=== PATIENT | male | born 1950 | race Caucasian/White ===

== ENCOUNTER 2016-06-24 14:33 | Inpatient (IN) ==
[2016-06-24] MEDS ORDERED: VANCOMYCIN PER PHARMACY IV ONE ×3 (17:57→18:11)
[2016-06-24] MEDS ORDERED: NALOXONE HCL 0.4 MG/ML VIAL IV PRN (18:11)
[2016-06-24] MEDS ORDERED: VANCOMYCIN 1,000 MG in 0.9 % SODIUM CHLORIDE 250 ML IV ONE (18:11)
[2016-06-24] MEDS ORDERED: ONDANSETRON 4 MG/2 ML VIAL IV PRN (18:11)
[2016-06-24] MEDS ORDERED: ACETAMINOPHEN 325 MG TABLET PO PRN (18:11)
[2016-06-24] MEDS ORDERED: PROMETHAZINE 25 MG/ML VIAL IV PRN (18:11)
[2016-06-24] MEDS ORDERED: CALCIUM CARBONATE 500 MG TAB.CHEW CHEWED SCH (18:15)
--- NOTE | 2016-06-24 18:21 | Internal Med History&Physical ---
Medical - H&P: HPI Patient information: Note initiated : 06/24/16 at 6:13 pm Service Date, if different from initiated Date: [] Patient: Patrice Toscano 65 y/o M admitted on 06/24/16 for PNA,ESRD. Chief Complaint: [] History of present illness: Mr. Toscano is a 65 year old male with h/o esrd on HD, presented to the ER from HD unit in [place] for increased confusion. The patient on my evaluation was drowsy, and responsive only to deep touch, on review of the documentation by the ER physician in [place], it seems he had received 0.5mg atvian prior to arrival here at this facility. The Er note mentions that the patient has been having increased confusion and hallucinations x 1 week, worse today, during HD he was confused and had visual hallucinations therefore transported to the ER. He did not endorse any specific complaints to the ER< they did an X ray chest which they noted for right lower lobe pneumonia, however the official x ray read is for left pleural effusion, which is chronic and new right lower lobe effusion. The patient has h/o bladder cancer s/p resection and a urostomy in place. The urostomy is draining pus/ yellowish brown liquid. The ER note mentions that this is a chr issue. As per the nurse the patient has h/o chronic oxygen dependence and is on 4L oxygen at baseline. Labs done by the ER there shows leucopenia, wbc of 3.4, Na 137, K 3.7, Hco3 30, Procalcitonin 0.59, trop 0.03, lft ok, alb 2.1 [facility] did not have any lozenge maker helper available, and the patient declined transfer to [facility], the patient was therefore presented to Dr Zepeda who was the accepting physician for admission. I have taken over the service and Dr Zepeda did not see or evaluate the patient. ROS unobtainable: due to mental status Medical - H&P: PMH Medical history: Anemia of renal disease CAD HTN obtained by ER notes. Surgical history: Baldder cancer s/p resection urostomy Obtained by er note Pertinent family history: unable to review, pt non verbal. Social history: smoker, no etoh no drugs Obtained via ER notes. Medical - H&P: Meds Allergies Allergy/AdvReac Type Severity Reaction Status Date / Time No Known Drug Allergies Allergy Unverified 06/24/16 18:13 Medical - H&P: Exam - Constitutional Vitals: Temp Pulse Resp BP Pulse Ox 98.1 F 77 24 103/65 97 06/24/16 16:49 06/24/16 16:49 06/24/16 16:49 06/24/16 16:49 06/24/16 16:49 General appearance: no acute distress - Head Head exam: Present: atraumatic, normal inspection - Eye Eye exam: Present: PERRL. Absent: periorbital swelling, scleral icterus Additional comments: left subconjunctiave hemmorrhage. - ENT ENT exam: Present: mucous membranes dry, normal external ear exam - Neck Neck exam: Present: normal inspection Additional comments: Right IJ Central access. - Respiratory Respiratory exam: Absent: accessory muscle use, stridor, wheezes - Cardiovascular Cardiovascular exam: Present: normal rate and rhythm, +S1, +S2, systolic murmur - GI/Abdominal GI/Abdominal exam: Present: normal bowel sounds, soft. Absent: guarding, tenderness Additional comments: Right lower quadrant, Urostomy bag in place, approx 100cc brownish / yellowish liquid in bag - Extremities Exam Extremities exam: Absent: pedal edema Additional comments: dry skin, scaly heels long nails - Neurological Exam Additional comments: aoox0 drowsy, awakes to deep stimuli and can follow orders once awake, goes back to sleep soon. moving all extremities, - Psychiatric Additional comments: drowsy unable to examine. - Skin Skin exam: Present: dry. Absent: rash, urticaria Medical - H&P: Reslt - Labs Labs: reviewed see HPI for labs, radiology Medical - H&P: A/P (1) Pleural effusion, left Current visit: Yes Status: Acute (2) Pleural effusion, right Current visit: Yes Status: Acute (3) Hospital-acquired pneumonia Current visit: Yes Status: Acute (4) Urinary tract infection Current visit: Yes Status: Acute (5) Sepsis Current visit: Yes Status: Acute (6) Chronic respiratory failure Current visit: Yes Status: Acute (7) ESRD (end stage renal disease) Current visit: Yes Status: Acute - Narrative A/P Narrative: Patient is drowsy, therefore complete history not possible, CT head done by ER is negative, Based on the labs/ ER notes it seems that the patient has AMS, Hallucinations and the etiology is likely PNA/ vs UTI PNA_ Blood cultures, IV vancomycin and zosyn for now, Pleural effusion_ Rodrigo effusion,s left is chronic, however right is new, Get CT chest without contrast to look for e/o empyema. UTI/ pyuria- On IV antibiotics, according to notes this is a chr issue? will get USG renal for further evaluation, consider CT abdomen and pelvis. Get urine culture after changing bag. AMS/ Hallucinations- due to infection treat and monitor ESRD- Nephrology consult, the patient had 2 hrs HD today, electrolytes seems stable, not clinically in fluid overload no urgent need for dialysis. DVT - HEp sq Diet- renal Prognosis- Guarded.
[2016-06-24] MEDS: IPRATROPIUM/ALBUTEROL 3 ML AMPUL.NEB NEB SCH (18:57)
[2016-06-24] MEDS ORDERED: IPRATROPIUM/ALBUTEROL 3 ML AMPUL.NEB NEB ONE (18:59)
[2016-06-24] MEDS ORDERED: PIPERACILLIN SODIUM/TAZOBACTAM 2.25 GM VIAL IV ONE (20:02)
[2016-06-24] MEDS: HEPARIN 5,000 UNIT/ML VIAL SQ SCH (20:05)
[2016-06-24] MEDS: PIPERACILLIN SODIUM/TAZOBACTAM 2.25 GM in DEXTROSE 5% IN WATER 50 ML IV SCH (20:05)
[2016-06-24] MEDS: 0.9 % SODIUM CHLORIDE 10 ML SYRINGE IV SCH ×2 (20:06→22:36)
--- NOTE | 2016-06-24 20:18 | Cat Scan Report ---
CLINICAL INFORMATION: Pleural effusion. Unresponsive. COMPARISON: None TECHNIQUE: Axial noncontrast enhanced images through the chest. Sagittally and coronally reformatted images. MIP reformatted images. FINDINGS: Large bilateral pleural effusions. These appear to be free flowing pleural effusions. Bilateral lower lobe volume loss with air bronchograms. Upper lobes are negative. No parenchymal consolidation or focal mass. Extensive coronary artery calcification. No pericardial fluid. No hilar or mediastinal lymphadenopathy. No pathologic axillary adenopathy. Thoracic spine is negative. Ribs and sternum are negative. IMPRESSION: 1. Large bilateral pleural effusions. 2. Bilateral lower lobe volume loss. Pneumonia is possible. Interpreted and Authenticated by: Zach Wilson 06/24/16
--- NOTE | 2016-06-24 20:30 | Ultrasound Report ---
CLINICAL INFORMATION: Altered mental status. Not responsive. TECHNIQUE: Grayscale and color flow spectral imaging COMPARISON: None. FINDINGS: Difficult examination. The patient was unable to cooperate and move for optimal imaging. Abnormal gallbladder. Dense acoustic shadow consistent with cholelithiasis. Kidneys are markedly abnormal. Left kidney measures 14.9 x 6.7 x 5.7 cm. Right kidney measures 12.2 x 5.2 x 4.9 cm. No normal sinus or cortical parenchyma. There are multiple hypoechoic abnormalities throughout both kidneys. These may be prominent pyramids or cysts. Appearance is not typical of bilateral hydronephrosis. The hypoechoic abnormalities are not sonolucent, infection is not excluded. No shadowing abnormalities. No detectable calculi. CT scan maybe helpful for better anatomic evaluation. Bladder is not identified. IMPRESSION: 1. Markedly abnormal kidneys. No typical hydronephrosis. 2. Multiple hypoechoic but not sonolucent abnormalities. CT scan maybe helpful for further evaluation. Interpreted and Authenticated by: Zach Wilson 06/24/16
[2016-06-24] MEDS ORDERED: VANCOMYCIN 500 MG VIAL ONE (21:24)
[2016-06-25] MEDS: IPRATROPIUM/ALBUTEROL 3 ML AMPUL.NEB NEB SCH ×4 (02:34→19:10)
[2016-06-25] MEDS: PIPERACILLIN SODIUM/TAZOBACTAM 2.25 GM in DEXTROSE 5% IN WATER 50 ML IV SCH ×3 (05:26→23:28)
[2016-06-25] MEDS: 0.9 % SODIUM CHLORIDE 10 ML SYRINGE IV SCH ×3 (05:27→23:36)
[2016-06-25] MEDS ORDERED: PIPERACILLIN SODIUM/TAZOBACTAM 2.25 GM VIAL IV ONE (05:33)
[2016-06-25 06:17] LABS: ALT/SGPT < 5 U/l (0-40); Albumin 2.3 gm/dL (3.2-5.2); Albumin/Globulin Ratio 0.6 (1.0-2.3); Alkaline Phosphatase 90 U/L (39-117); Bilirubin,Direct < 0.2 mg/dL (0.0-0.3); Blood Urea Nitrogen 21 mg/dl (8-23); Gamma Glutamyl Transpeptidase 9 U/L (8-61); Magnesium 1.9 mg/dL (1.6-2.5); Phosphorous 6.6 mg/dL (2.7-4.5); Uric Acid 4.3 mg/dL (2.5-8.0)
[2016-06-25 06:18] LABS: Mean Cell Volume 85.4 fL (80.0-100.0); Mean Corpuscular HGB Conc 30.1 g/dL (31.0-36.0); Mean Corpuscular Hemoglobin 25.8 pg (26.0-34.0); Platelet Count 129 K/mcL (140-440); RBC 4.18 M/mcL (4.50-5.90); Red Cell Distribution Width 18.3 % (11.5-14.5)
[2016-06-25] MEDS: PANTOPRAZOLE 40 MG VIAL IV SCH (07:57)
[2016-06-25 08:52] LABS: Anisocytosis 1+ (NONE SEEN); Band Neutrophils % 12 % (0-10); Basophils % (Manual) 3 % (0-2); Eosinophils % (Manual) 1 % (0-7); Hypochromasia 1+ (NONE SEEN); Lymphocytes % 11 % (15-49); Monocytes % (Manual) 6 % (1-9); Platelet Estimate DECREASED (NORMAL); RBC Morphology ABNORM (NORMAL); Segmented Neutrophils % 67 % (38-78)
[2016-06-25] MEDS: MULTIVIT,THER IRON,CA,FA & MIN 1 TABLET PO SCH (09:11)
[2016-06-25] MEDS: HEPARIN 5,000 UNIT/ML VIAL SQ SCH ×2 (09:11→23:27)
[2016-06-25] MEDS: SEVELAMER 800 MG TABLET PO SCH ×3 (09:11→17:15)
[2016-06-25] MEDS: CINACALCET 30 MG TABLET PO SCH (09:11)
[2016-06-25] MEDS: CLOPIDOGREL 75 MG TABLET PO SCH (09:11)
[2016-06-25] MEDS: oxyCODONE/APAP 5/325MG TABLET PO PRN ×2 (09:15→14:00)
--- NOTE | 2016-06-25 09:58 | Internal Med Progress Note ---
Medical - PN: Subj Patient information: Note initiated : 06/25/16 at 9:56 am Service Date, if different from initiated Date: [] Patient: Patrice Toscano 65 y/o M admitted on 06/24/16 for PNA,ESRD. Chief Complaint: [] Interval history: The patient seen examined, this AM overnight events noted, no acute issues the patient mental status is much better this AM, able to answer questions, knows he is in the [facility], but not the hospital, aware of the year, He notes he was sent to the ER because he had confusion and hallucinations he is otherwise only endorsing shortness of breath. Ct chest reviewed- Rodrigo signifciant effusions, given history that left one is chronic, I think we will start with tapping the right sided effusion first. USG of the kidneys reivewed, no clear but the kidneys seemed distored. CT abdomen and pelvis advised, plan to get same today, before dailysis Nephrology eval pending. I called and discussed the case with the oncall station helper, who did not know the patient well, and did not know if the patients pleural effusions have been worked up. She was not aware of the medications patient is supposed to be on or if the pyuria is worked up. She did know the patient and his and it seems that they have a history of non compliance. The patient notes that uses oxygen 3-4L/min, not sure why, noted that they give it to me so I use it. Its likely that he is oxygen dependent due to effusions/ copd? (albuterol is on his med list) Pertinent ROS: Denies headache, dizziness Denies chest pain, palpitations Denies cough hoas shortness of breath Denies abdominal pain, nausea or vomiting. - Constitutional Vitals: Vital Signs Temp Pulse Resp BP Pulse Ox 97.8 F 70 16 105/41 99 06/25/16 07:10 06/25/16 08:13 06/25/16 08:13 06/25/16 07:10 06/25/16 08:14 Period Temp Pulse Resp BP Sys/Espinal Pulse Ox Last 24 Hr 97.4 F-98.2 F 69-77 16-24 96-114/41-68 96-100 Intake and Output 06/24/16 06/25/16 06/25/16 21:59 05:59 13:59 Intake Total 50 / 50 450 / 450 Output Total 100 / 100 Balance 50 / 50 350 / 350 Weight 160 lb 8 oz 160 lb 8 oz Intake & Output: Intake & Output 06/24/16 06/25/16 06/25/16 21:59 05:59 13:59 Intake Total 50 / 50 450 / 450 Output Total 100 / 100 Balance 50 / 50 350 / 350 Weight 160 lb 8 oz 160 lb 8 oz Intake: IV 50 / 50 250 / 250 Dextrose 5% in Water 50 50 / 50 ml @ 100 mls/hr IV Q8H SILKE with Zosyn 2.25 gm Rx #:[id number] Sodium Chloride 0.9% 250 250 / 250 ml @ 250 mls/hr IV ONCE ONE with Vancomycin 1,000 mg Rx#:[id number] Oral 200 / 200 Output: Urine Catheter Amount 100 / 100 Other: # Bowel Movements 1 1 Exam: Constitutional; Afebrile, cooperative, alert, not in distress. Eyes- No icterus, Pupils equal, reactive, No periorbital swelling Ears- Ext ear normal, hearing normal to conversation. Neck- Midline trachea, supple Respiratory system: Air Entry diminished rodrigo at bases. no crackles heard. no wheezing. CVS- Rate rhythm regular, S1,S2 heard, no gallop, no rub. systolic murmur present. Abdomen- Soft nontender abdomen, no organomegaly, no tenderness, no guarding or rigidity, DISTRICT SALES REPRESENTATIVE- AOOx3, moving all extremities, no focal deficit noted. Medical - PN: Obj Da - Labs CBC & Chem 7: 06/25/16 04:40 06/25/16 04:40 Labs: Abnormal Lab Results 06/25/16 06/25/16 04:40 04:40 WBC 3.4 L RBC 4.18 L Hgb 10.8 L Hct 35.7 L MCH 25.8 L MCHC 30.1 L RDW 18.3 H Plt Count 129 L Band Neutrophils % 12 H Lymphocytes % 11 L Basophils % (Manual) 3 H Platelet Estimate Decreased A RBC Morphology Abnorm A Hypochromasia 1+ A Poikilocytosis 1+ A Anisocytosis 1+ A Creatinine 5.7 H* Glucose 60 L Calcium 7.9 L Phosphorus 6.6 H* Albumin 2.3 L Globulin 4.0 H Albumin/Globulin Ratio 0.6 L Meds: Medications Acetaminophen (Tylenol) 650 mg PO Q6HP PRN PRN Reason: PAIN/FEVER > 101 Albuterol/Ipratropium (Duoneb) 3 ml NEB Q6HRT [facility] Last Admin: 06/25/16 08:10 Dose: 3 ml Calcium Carbonate/Glycine (Tums) 500 mg CHEWED Q6HP [facility] Cinacalcet (Sensipar) 30 mg PO QAMCC [facility] Last Admin: 06/25/16 09:11 Dose: 30 mg Clopidogrel Bisulfate (Plavix) 75 mg PO DAILY [facility] Last Admin: 06/25/16 09:11 Dose: 75 mg Heparin Sodium (Porcine) (Heparin) 5,000 unit SQ Q12 [facility] Last Admin: 06/25/16 09:11 Dose: 5,000 unit Piperacillin Sod/Tazobactam (Sod 2.25 gm/ Dextrose) 50 mls @ 100 mls/hr IV Q8H [facility] Last Admin: 06/25/16 05:26 Dose: 100 mls/hr Iron Carb/Multivit/Powder And Primer Canning Leader/Folic Acid (Multivitamin W/Minerals) 1 tab PO DAILY [facility] Last Admin: 06/25/16 09:11 Dose: 1 tab Naloxone HCl (Narcan) 0.1 mg IV Q2MIN PRN PRN Reason: Opiate Reversal Ondansetron HCl (Zofran) 4 mg IV Q6HP PRN PRN Reason: Nausea And Vomiting Oxycodone/Acetaminophen (Percocet 5-325 Mg) 1 tab PO Q4HP PRN PRN Reason: Pain Last Admin: 06/25/16 09:15 Dose: 1 tab [facility]oprazole [facility]) [facility] Admin: 06/25/16 07:57 Dose: 40 mg Promethazine HCl (Phenergan) 12.5 mg IV Q6HP PRN PRN Reason: Nausea And Vomiting Sevelamer Carbonate (Renvela) 4,000 mg PO TIDCC [facility] Last Admin: 06/25/16 09:11 Dose: 4,000 mg Sodium Chloride (Saline Flush) 10 ml IV Q8 [facility] Last Admin: 06/25/16 05:27 Dose: 10 ml Medical - PN: A/P - Time Spent With Patient Total time spent is greater than 50% in coordination of care (as documented) at patient's floor/unit and/or counseling patient: (1) Pleural effusion, left Status: Acute Current Visit: Yes (2) Pleural effusion, right Status: Acute Current Visit: Yes (3) Hospital-acquired pneumonia Status: Acute Current Visit: Yes (4) Urinary tract infection Status: Acute Current Visit: Yes (5) Sepsis Status: Acute Current Visit: Yes (6) Chronic respiratory failure Status: Acute Current Visit: Yes (7) ESRD (end stage renal disease) Status: Acute Current Visit: Yes - Narrative A/P Narrative: The patient is admitted for pneumonia/ pyuria,today the patient admitted having pyuria x 2 yrs, not sure if it has been worked up, but denies going to a urologist. He has new right pleural effusion. Pt blood work shows lecopenia and bandemia. I called the oncall station helper but it seems that she was not aware about the patients condition to provide meaningful info, will do basic work up here and then plan of further steps. For the pneumonia/ sepsis- Continue with IV antibiotics, Vancomycin and zosyn. Cultures pending, Pyuria, seems to be chr,- Renal usg not helpful, but no obvious hydronepghrosis , Will get CT scan done today, plan to do dialysis after CT with contrast. Pleural effusion- Plan to do right pleural tap by Radiology after dialysis to further evaluated the patients effusion. Will get Echo to evaluate cardiac function. ESRD on HD, Nephrology consulted, elevated phos, but K , hco3 ok, does have fluid overload from pleural effusions, but only rodrigo trace lower extremity edema. DVT hep sq Diet advance as tolerated.
[2016-06-25] MEDS ORDERED: IOPAMIDOL 100 ML BOTTLE IV ONE (11:19)
[2016-06-25] MEDS ORDERED: VANCOMYCIN PER PHARMACY IV SCH (11:45)
--- NOTE | 2016-06-25 12:24 | Cat Scan Report ---
CLINICAL INFORMATION: Abdominal pain. Renal failure. Pleural effusions. COMPARISON: Abdominal ultrasound dated 06/24/2016 TECHNIQUE: Axial images were obtained through the abdomen and pelvis. Sagittally and coronally reformatted images. 80 mL nonionic contrast material injected intravenously. The late phase images were obtained FINDINGS: History of bladder cancer and cystectomy. No urinary bladder is present. There is no pelvic adenopathy. Patient has a history of diverting ureterostomy. There is a right lower quadrant stoma. Kidneys are abnormal bilaterally. There are large bilateral staghorn calculi. Renal cortex is markedly thinned. There are rounded low density abnormalities consistent with dilated calyces. There is a thin rim of enhancing renal cortex bilaterally. Findings may be due to staghorn calculi and hydronephrosis but xanthogranulomatous pyelonephritis (XGP) should be considered. The ureters are dilated and enhancing. There is periureteral inflammatory change. Appearance is consistent with infection. There are bilateral pleural effusions, left slightly larger than right. There is bilateral lower lobe volume loss due to compressive atelectasis. No significant pericardial fluid. There is extensive coronary artery disease. Liver is negative. No nodularity. No intrahepatic mass. The gallbladder is present. 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 No calcified gallstones. Negative pancreas. No pancreatic mass. Spleen is negative. Normal enhancement splenic portal veins. Adrenal glands are negative. There are retroperitoneal, paraaortic lymph nodes. Appearance is nonspecific. PET CT scan may be helpful in this patient with bladder cancer. No significant mesenteric adenopathy. Colon is negative. No detectable colonic mass. No mechanical small bowel obstruction. Lumbar spine is negative. No compression deformities. No sclerotic metastases. Sacrum and pelvis are negative. No ascites. No intra-abdominal abscess. No pneumoperitoneum. IMPRESSION: 1. Severely abnormal kidneys. There are large staghorn calculi bilaterally. 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 2. Dilated and enhancing ureters with periureteral infiltration. Appearance is consistent with infection 3. Previous cystectomy. 4. Retroperitoneal adenopathy. As may be pathologic. 5. Porcelain gallbladder Interpreted and Authenticated by: Zach Wilson 06/25/16
[2016-06-25] MEDS: NICOTINE 21 MG PATCH TOPICAL SCH (12:34)
--- NOTE | 2016-06-25 20:38 | Nephrology Consult Note ---
History of Present Illness - Reason for Consult Patient information: Note initiated : 06/25/16 at 8:32 pm Service Date, if different from initiated Date: [] Patient: Patrice Toscano 65 y/o M admitted on 06/24/16 for PNA,ESRD. Chief Complaint: [] Consult date: 06/25/16 end stage renal disease Requesting physician: Nicki Slater - Chief Complaint confusion - History of Present Illness Mr Toscano is a 65 y/o white male with PMH of HTN, ESRD on HD and other multiple medical issues who is admitted with PNA Patient was found to confused and was having visual hallucinations during his dialysis yesterday, he was transferred to ED at [facility], evaluation there revealed PNA and as there is no inpatient dialysis at [facility] and because patient refused transfer to [facility] he was transferred here at [facility] Patient does not remember of what happened yesterday He did receive dialysis for 2 hrs yesterday He c/o chronic cough and SOB, he is on home oxygen he has no fever, denies CP He denies LE edema he denies any GI symptoms he states that he has had confusion on and off for the last few weeks He also has h/o pyuria which apparently is chronic, he is not able to provide details about this either Review of Systems All systems PM: reviewed and no additional remarkable complaints except as stated (as in HPI) Past History Past medical history: HTN ESRD on HD, states attributed to NSAIDS use, also has h/o obstructive uropathy h/o bladder cancer s/o cystectomy anemia of chronic disease renal osteodystrophy CAD Past surgical history: H/O Cystectomy for bladder cancer h/o AVF surgery failed s/p tunneled cath placement for dialysis Past family history: not pertinent Past social history: smokes pack and a half cigarette every day denies alcohol use lives with his who is also on dialysis, and daughter and son in law Medications and Allergies Home Medications Medication Instructions Recorded Confirmed Type Clopidogrel [Plavix] 300 mg DAILY 06/24/16 06/25/16 History Sevelamer [Renvela] 4,000 mg PO TIDCC 06/24/16 06/25/16 History hydrOXYzine [Atarax] 25 mg PO DAILYP PRN 06/24/16 06/25/16 History Atenolol [Tenormin] 25 mg PO DAILY 06/25/16 06/25/16 History Cinacalcet [Sensipar] 30 mg PO QAMCC 06/25/16 06/25/16 History Naproxen 1 - 2 tablet PO Q8HP PRN 06/25/16 06/25/16 History Pramipexole [Mirapex] 0.125 mg PO DAILY 06/25/16 06/25/16 History amLODIPine [Norvasc] 5 mg PO DAILY 06/25/16 06/25/16 History Allergies Allergy/AdvReac Type Severity Reaction Status Date / Time No Known Drug Allergies Allergy Unverified 06/24/16 18:13 Exam - Vital Signs Vital signs: Temp Pulse Resp BP Pulse Ox 97 F L 72 22 223/52 97 06/25/16 20:00 06/25/16 20:00 06/25/16 20:00 06/25/16 20:00 06/25/16 20:00 - General Appearance General appearance: appears started age, chronically ill EENT: mucous membranes moist Neck: JVD Respiratory: rales (decreased air entry bilaterally, coarse rales RLL) Cardiology: mid-systolic murmur, normal S1, normal S2 Gastrointestinal: no tenderness, no guarding Integumentary: warm and dry Neurologic: alert and oriented x3 (HAS Myoclonic tremors ) Musculoskeletal: no erythema, no cyanosis Psychiatric: mood/affect appropriate Results - Lab Results 06/25/16 04:40 06/25/16 04:40 Most recent lab results Calcium 7.9 mg/dl (8.6-10.4) L 06/25/16 04:40 Phosphorus 6.6 mg/dL (2.7-4.5) H* 06/25/16 04:40 Magnesium 1.9 mg/dL (1.6-2.5) 06/25/16 04:40 Assessment and Plan (1) ESRD (end stage renal disease) Patient will be dialysed today for 3 hrs using revaclear dialyser, 3K/2.5ca dialysate, UF goal of 0.5-1L as tolerated given low normal BP and echo findings ad infection next HD on Mon please dose meds to ESRD Anemia on chronic disease: rather has pancytopenia, Hb is above threshold for LARRY Malnutrition: S.albumin is 2.6, will give nepro with meals PNA/UTI: on antibiotics, CT scan of abdomen s/o ? xanthogranulomatous Pyelonephritis awaiting urology consult Bilateral pleural effusion ? CHF, has severe ,MS on echo, pt did not tolerate UF removal Will follow along Thank you for giving me an opportunity to participate in Mr Toscano's medical care , appreciate it Status: Acute
[2016-06-26] MEDS: IPRATROPIUM/ALBUTEROL 3 ML AMPUL.NEB NEB SCH ×6 (00:33→19:03)
[2016-06-26] MEDS: PIPERACILLIN SODIUM/TAZOBACTAM 2.25 GM in DEXTROSE 5% IN WATER 50 ML IV SCH ×2 (05:25→14:35)
[2016-06-26] MEDS: 0.9 % SODIUM CHLORIDE 10 ML SYRINGE IV SCH ×2 (05:25→13:01)
[2016-06-26 06:44] LABS: Basophils # (Auto) 0.1 K/mcL (0.0-0.3); Basophils % (Auto) 1.5 % (0.0-2.0); Eosinophils # (Auto) 0 K/mcL (0.0-0.7); Eosinophils % (Auto) 0.9 % (0.0-7.0); Granulocytes % (Auto) 79.9 % (38.0-78.0); Lymphocytes # (Auto) 0.3 K/mcL (1.5-4.8); Lymphocytes % (Auto) 7.2 % (15.5-49.0); Mean Corpuscular HGB Conc 29.8 g/dL (31.0-36.0); Mean Corpuscular Hemoglobin 25.6 pg (26.0-34.0); Monocytes # (Auto) 0.4 K/mcL (0.1-0.9); Monocytes % (Auto) 10.5 % (1.0-9.0); Platelet Count 167 K/mcL (140-440); RBC 4.14 M/mcL (4.50-5.90); Red Cell Distribution Width 18.3 % (11.5-14.5)
[2016-06-26] MEDS: PANTOPRAZOLE 40 MG VIAL IV SCH (07:02)
[2016-06-26 07:24] LABS: ALT/SGPT < 5 U/l (0-40); Albumin 2.3 gm/dL (3.2-5.2); Albumin/Globulin Ratio 0.6 (1.0-2.3); Alkaline Phosphatase 88 U/L (39-117); Bilirubin,Direct < 0.2 mg/dL (0.0-0.3); Blood Urea Nitrogen 16 mg/dl (8-23); Gamma Glutamyl Transpeptidase 8 U/L (8-61); Magnesium 2.1 mg/dL (1.6-2.5); Phosphorous 5.6 mg/dL (2.7-4.5); Uric Acid 3.4 mg/dL (2.5-8.0)
[2016-06-26] MEDS: CLOPIDOGREL 75 MG TABLET PO SCH (08:26)
[2016-06-26] MEDS: HEPARIN 5,000 UNIT/ML VIAL SQ SCH (08:26)
[2016-06-26] MEDS: CINACALCET 30 MG TABLET PO SCH (08:35)
[2016-06-26] MEDS: SEVELAMER 800 MG TABLET PO SCH ×3 (08:35→13:02)
[2016-06-26] MEDS: MULTIVIT,THER IRON,CA,FA & MIN 1 TABLET PO SCH (08:35)
[2016-06-26] MEDS ORDERED: VANCOMYCIN 1,500 MG in 0.9 % SODIUM CHLORIDE 500 ML IV ONE (10:00)
[2016-06-26] MEDS: NICOTINE 21 MG PATCH TOPICAL SCH (11:21)
--- NOTE | 2016-06-26 11:35 | XRay Report ---
CLINICAL INFORMATION: Dyspnea TECHNIQUE: Upright AP chest x-ray COMPARISON: Previous CT scan dated 06/24/2016 FINDINGS: Right-sided central venous catheter, unchanged. Bilateral pleural effusions, left is larger than the right. There is bilateral, bibasilar volume loss or infiltrate. Mid and upper lungs remain negative. No change in heart size. Comparison with the previous digital customer service associate radiograph demonstrates no definite interval change. IMPRESSION: 1. Bilateral pleural effusions, left larger than right 2. No detectable interval change since 06/24/2016 Interpreted and Authenticated by: Zach Wilson 06/26/16
[2016-06-26 12:28] LABS: proBNP > 70000.0 pg/ml (0-125)
--- NOTE | 2016-06-26 13:20 | Internal Med Progress Note ---
Medical - PN: Subj Patient information: Note initiated : 06/26/16 at 1:05 pm Service Date, if different from initiated Date: [] Patient: Patrice Toscano 65 y/o M admitted on 06/24/16 for PNA,ESRD. Chief Complaint: [] Interval history: The patient seen examined, The patient is more drowsy today than yesterday, was not very communicative, but did answer direct questions The patient has been alerted with waxing and waning mentation. The patients pleural tap was held yesterday in light of low bp during dialysis. Will try to get it done today if the patient is able to sit up and be cooperative THe patients urine culture is growing gram neg bacillus The patient CT chest suggestive of yanni effusions/ ? PNA Echo cardiogram shows lvef of 45%, severe MS with area of 0.9, severe with area of 0.7, and valve index of 0.[address] abdomen pelvis shows catracho ureteral inflammation/ yanni stag horn calculus, and xanthomatous granulomatosis, porcelian gall bladder. Labs reviewed, BNP is > 70K I reviewed the case with Dr Mcknight, who will evaluate the patient, no need for urgent intervention, but will need source control soon. The patients primary issue is the infection, which is likely coming from the pyleo/ uteritis. However no intervention is possible at this time, given that the patient has severe MS/ , the patient is unable to tolerate fluid removal during dialysis. I reviewed the patients case with Cardiology at [facility] who noted that infection needs to be treated before any cardiac intervention is done. Not a candidate for transfer at this time. The patient condition however deteriorated during the day, he became more unresponsive, ABG showed acute resp acidosis, Patient was placed on bipap, which did not help the patient Pt bp dropped, started on Levophed and plan for central line done, during placement of central line, the patient desaturated and needed patsy intubated. The patient attempt at getting a left IJ was unsuccessful, the patient lost the right AC IV access during this time. An emergent Right femoral Quad lumen central catheter was placed. see discharge summary for full [email or web address] Pertinent ROS: uinable due to mental status. - Constitutional Vitals: Vital Signs Temp Pulse Resp BP Pulse Ox 99.3 F 77 24 100/66 94 06/26/16 11:28 06/26/16 07:09 06/26/16 11:28 06/26/16 11:28 06/26/16 11:28 Period Temp Pulse Resp BP Sys/Espinal Pulse Ox Last 24 Hr 97 F-99.3 F 62-93 18-30 80-223/42-68 92-98 Intake and Output 06/25/16 06/26/16 06/26/16 21:59 05:59 13:59 Intake Total 50 / 50 50 / 50 Output Total 1566 / 1566 125 / 125 Balance -1516 / -1516 -75 / -75 Weight 164 lb Intake & Output: Intake & Output 06/25/16 06/26/16 06/26/16 21:59 05:59 13:59 Intake Total 50 / 50 50 / 50 Output Total 1566 / 1566 125 / 125 Balance -1516 / -1516 -75 / -75 Weight 164 lb Intake: IV 50 / 50 50 / 50 Dextrose 5% in Water 50 50 / 50 50 / 50 ml @ 100 mls/hr IV Q8H SILKE with Zosyn 2.25 gm Rx #:[id number] Oral 0 / 0 Output: Urine Catheter Amount 125 / 125 Hemodialysis UF 1566 / 1566 Other: Meal Dinner Percent of Meal Consumed 25% # Bowel Movements 1 Exam: Constitutional; Afebrile, cdrowsy and confused. Eyes- No icterus, Pupils equal, reactive, No periorbital swelling left subconjunctival hemorrhage. Neck- Midline trachea, supple Respiratory system: Air Entry equal on both sides, exp wheezing noted, poor air entry on both bases. CVS- Rate rhythm regular, S1,S2 heard, no gallop, no rub. Abdomen- Soft nontender abdomen, no organomegaly, no tenderness, no guarding or rigidity,urethrostomy present. [employer]- AOOx1 moving extermities. Medical - PN: Obj Da - Labs CBC & Chem 7: 06/26/16 04:30 06/26/16 04:30 Labs: Abnormal Lab Results 06/26/16 06/26/16 06/26/16 11:05 04:30 04:30 WBC 4.0 L RBC 4.14 L Hgb 10.6 L Hct 35.6 L MCH 25.6 L MCHC 29.8 L RDW 18.3 H Plt Count Gran % 79.9 H Lymph % (Auto) 7.2 L Coke % (Auto) 10.5 H Lymph # 0.3 L Band Neutrophils % Lymphocytes % Basophils % (Manual) Platelet Estimate RBC Morphology Hypochromasia Poikilocytosis Anisocytosis PT Creatinine 4.9 H Glucose 55 L Calcium 8.3 L Phosphorus 5.6 H NT-Pro-B Natriuret Pep > 25794.0 H Total Protein Albumin 2.3 L Globulin 4.1 H Albumin/Globulin Ratio 0.6 L 06/25/16 06/25/16 06/25/16 10:20 10:20 04:40 WBC RBC Hgb Hct MCH MCHC RDW Plt Count Gran % Lymph % (Auto) Coke % (Auto) Lymph # Band Neutrophils % Lymphocytes % Basophils % (Manual) Platelet Estimate RBC Morphology Hypochromasia Poikilocytosis Anisocytosis PT 14.7 H Creatinine 5.7 H* Glucose 60 L Calcium 7.9 L Phosphorus 6.6 H* NT-Pro-B Natriuret Pep Total Protein 5.6 L Albumin 2.3 L Globulin 4.0 H Albumin/Globulin Ratio 0.6 L 06/25/16 04:40 WBC 3.4 L RBC 4.18 L Hgb 10.8 L Hct 35.7 L MCH 25.8 L MCHC 30.1 L RDW 18.3 H Plt Count 129 L Gran % Lymph % (Auto) Coke % (Auto) Lymph # Band Neutrophils % 12 H Lymphocytes % 11 L Basophils % (Manual) 3 H Platelet Estimate Decreased A RBC Morphology Abnorm A Hypochromasia 1+ A Poikilocytosis 1+ A Anisocytosis 1+ A PT Creatinine Glucose Calcium Phosphorus NT-Pro-B Natriuret Pep Total Protein Albumin Globulin Albumin/Globulin Ratio Meds: Medications Acetaminophen (Tylenol) 650 mg PO Q6HP PRN PRN Reason: PAIN/FEVER > 101 Albuterol/Ipratropium (Duoneb) 3 ml NEB Q6HRT [facility] Last Admin: 06/26/16 07:07 Dose: 3 ml Calcium Carbonate/Glycine (Tums) 500 mg CHEWED Q6HP [facility] Last Admin: 06/26/16 08:27 Dose: 500 mg Cinacalcet (Sensipar) 30 mg PO [facility] Last Admin: 06/26/16 08:35 Dose: 30 mg Clopidogrel Bisulfate (Plavix) 75 mg PO DAILY [facility] Last Admin: 06/26/16 08:26 Dose: Not Given Heparin Sodium (Porcine) (Heparin) 5,000 unit SQ Q12 [facility] Last Admin: 06/26/16 08:26 Dose: Not Given Piperacillin Sod/Tazobactam (Sod 2.25 gm/ Dextrose) 50 mls @ 100 mls/hr IV Q8H [facility] Last Admin: 06/26/16 05:25 Dose: 100 mls/hr Iron Carb/Multivit/[place]/Folic Acid (Multivitamin W/Minerals) 1 tab PO DAILY [facility] Last Admin: 06/26/16 08:35 Dose: 1 tab Methylprednisolone Sodium Succinate (Solu-Medrol) 62.5 mg IV Q8 [facility] Naloxone HCl (Narcan) 0.1 mg IV Q2MIN PRN PRN Reason: Opiate Reversal Nicotine (Nicoderm) 21 mg TOPICAL DAILY@1000 [facility] Last Admin: 06/26/16 11:21 Dose: 21 mg Ondansetron HCl (Zofran) 4 mg IV Q6HP PRN PRN Reason: Nausea And Vomiting Last Admin: 06/26/16 08:29 Dose: 4 mg Oxycodone/Acetaminophen (Percocet 5-325 Mg) 1 tab PO Q4HP PRN PRN Reason: Pain Last Admin: 06/25/16 14:00 Dose: 1 tab Pantoprazole Sodium (Protonix) 40 mg IV QAMAC [facility] Last Admin: 06/26/16 07:02 Dose: 40 mg Promethazine HCl (Phenergan) 12.5 mg IV Q6HP PRN PRN Reason: Nausea And Vomiting Sevelamer Carbonate (Renvela) 4,000 mg PO TIDCC [facility] Last Admin: 06/26/16 13:02 Dose: Not Given Sodium Chloride (Saline Flush) 10 ml IV Q8 [facility] Last Admin: 06/26/16 13:01 Dose: 10 ml Vancomycin HCl (Vancomycin Per Pharmacy) 1 order IV UD [facility] Medical - PN: A/P - Time Spent With Patient Total time spent is greater than 50% in coordination of care (as documented) at patient's floor/unit and/or counseling patient: (1) Pleural effusion, left Status: Acute Current Visit: Yes (2) Pleural effusion, right Status: Acute Current Visit: Yes (3) Hospital-acquired pneumonia Status: Acute Current Visit: Yes (4) Urinary tract infection Status: Acute Current Visit: Yes (5) Sepsis Status: Acute Current Visit: Yes (6) Chronic respiratory failure Status: Acute Current Visit: Yes (7) ESRD (end stage renal disease) Status: Acute Current Visit: Yes (8) Acute respiratory failure with hypoxia and hypercapnia Status: Acute Current Visit: Yes - Narrative A/P Narrative: Septic shock, - IV fluids, Iv pressors, to keep map > 65, IV antibiotics, source likely to be , which is growing gram neg, Resp possible, current abx of vanco and zosyn should cover Acute hypoxic resp failure- mech ventillaiton, CHF- BNP > 70,000. Unable to tolerate fluid removal due to his valvular pathology, becomes hypotensive during dialysis. will likely need CVVH to remove fluid Yanni pleural effusion,: consider tappoing to improve fluid dynamics if patient stable, clinkcally likely from third spacking from CHF/ ESRD. ESRd on HD, last dailyssi yesterday, Patient to be transferred to [facility] for further managemetn, see discharge summary for details. critical care services rendered, vent management, ABG, Pressors, IV antibiotics adn fluids. Care coordination, > 120 mins spent
[2016-06-26] MEDS ORDERED: methylPREDNISolone SOD SUCC 125 MG/2 ML VIAL IV SCH ×2 (14:00)
[2016-06-26] MEDS ORDERED: oxyCODONE/APAP 5/325MG TABLET PO PRN (14:14)
[2016-06-26] MEDS ORDERED: NALOXONE HCL 0.4 MG/ML VIAL IV PRN (14:14)
[2016-06-26] MEDS ORDERED: CALCIUM CARBONATE 500 MG TAB.CHEW CHEWED SCH (14:14)
[2016-06-26] MEDS ORDERED: ONDANSETRON 4 MG/2 ML VIAL IV PRN (14:14)
[2016-06-26] MEDS ORDERED: ACETAMINOPHEN 325 MG TABLET PO PRN (14:14)
[2016-06-26] MEDS ORDERED: VANCOMYCIN PER PHARMACY IV SCH (14:14)
[2016-06-26] MEDS ORDERED: PROMETHAZINE 25 MG/ML VIAL IV PRN (14:14)
[2016-06-26] MEDS ORDERED: 0.9 % SODIUM CHLORIDE 250 ML IV ONE ×2 (15:36→18:09)
[2016-06-26] MEDS ORDERED: SEVELAMER 800 MG TABLET PO SCH (17:30)
[2016-06-26] MEDS ORDERED: IPRATROPIUM/ALBUTEROL 3 ML AMPUL.NEB NEB ONE ×2 (17:36→18:39)
[2016-06-26] MEDS ORDERED: NOREPINEPHRINE BITARTRATE 4 MG/4 ML AMPUL IV ONE ×2 (18:41)
[2016-06-26] MEDS ORDERED: NOREPINEPHRINE BITARTRATE 16 MG in 0.9 % SODIUM CHLORIDE 234 ML IV SCH (18:41)
[2016-06-26] MEDS ORDERED: MIDAZOLAM 2 MG/2 ML VIAL ONE ×2 (18:56→20:00)
[2016-06-26] MEDS ORDERED: IPRATROPIUM/ALBUTEROL 3 ML AMPUL.NEB NEB SCH (19:00)
[2016-06-26] MEDS ORDERED: ETOMIDATE 20 MG/10 ML VIAL IV ONE (19:20)
[2016-06-26] MEDS ORDERED: PROPOFOL 200 MG/20 ML VIAL IV ONE (19:25)
[2016-06-26] MEDS ORDERED: PROPOFOL 100 ML IV ONE (19:25)
[2016-06-26] MEDS ORDERED: MIDAZOLAM 5 MG/5 ML VIAL IV ONE (20:00)
--- NOTE | 2016-06-26 20:10 | Procedure Note ---
Procedures - Intubation Time out performed: Yes Sedative: Etomidate Paralytic: Succinylcholine ETT: ETCO2, BBS Laryngoscope: 1 Assist device used: glide Vocal Cord View: 1 ET tube size: 8 ET tube uncuffed: No Tube secured depth (cm): 25 Tube secured location: lips Tube placement confirmation: visualized tube passing through cords, equal breath sounds bilaterally, no breath sounds over epigastrium, confirmation by capnometry Patient tolerated procedure: well, no complications
[2016-06-26] MEDS ORDERED: PROPOFOL 100 ML IV SCH (20:15)
--- NOTE | 2016-06-26 20:15 | General Surgery Progress Note ---
Subjective Patient reports: no new complaints (asked to place CVL for mr norman. After 1st attempt at central line as guide wire was being threaded, pt desaturated to 65 and procedure aborted to bag ventilate and intubate. After intubation CVL attempted again and was unable to thread guide wire from left IJ. decision made to put in femoral line, done by dr. Slater. ) Narrative: Note initiated : 06/26/16 at 8:12 pm Service Date, if different from initiated Date: [] Patient: Patrice Toscano 65 y/o M admitted on 06/24/16 for PNA,ESRD. Chief Complaint: [] Objective Temp Pulse Resp BP Pulse Ox 96.5 F L 83 21 70/39 93 06/26/16 14:36 06/26/16 17:14 06/26/16 17:14 06/26/16 17:01 06/26/16 17:14 - Additional Data Intake & Output - Last 24 hours: Intake & Output 06/24/16 06/25/16 06/26/16 06/27/16 05:59 05:59 05:59 05:59 Intake Total 550 / 550 300 / 300 Output Total 100 / 100 1691 / 1691 Balance 450 / 450 -1391 / -1391 Weight 160 lb 8 oz 164 lb - Labs 06/26/16 04:30 06/26/16 04:30 Diabetes panel 06/26/16 Range/Units 04:30 Sodium 139 (133-145) mmol/L Potassium 4.2 (3.3-5.1) mmol/L Chloride 99 (96-108) mmol/L Carbon Dioxide 25 (22-30) mmol/L BUN 16 (8-23) mg/dl Creatinine 4.9 H (0.7-1.2) mg/dl Glucose 55 L (70-105) mg/dL Calcium 8.3 L (8.6-10.4) mg/dl AST 8 (0-37) U/l ALT < 5 (0-40) U/l Alkaline Phosphatase 88 (39-117) U/L Total Protein 6.4 (5.9-8.4) gm/dL Albumin 2.3 L (3.2-5.2) gm/dL Triglycerides 101 (<150) mg/dl Calcium panel 06/26/16 Range/Units 04:30 Calcium 8.3 L (8.6-10.4) mg/dl Phosphorus 5.6 H (2.7-4.5) mg/dL Albumin 2.3 L (3.2-5.2) gm/dL Pituitary panel 06/26/16 Range/Units 04:30 Sodium 139 (133-145) mmol/L Potassium 4.2 (3.3-5.1) mmol/L Chloride 99 (96-108) mmol/L Carbon Dioxide 25 (22-30) mmol/L BUN 16 (8-23) mg/dl Creatinine 4.9 H (0.7-1.2) mg/dl Glucose 55 L (70-105) mg/dL Calcium 8.3 L (8.6-10.4) mg/dl Adrenal panel 06/26/16 Range/Units 04:30 Sodium 139 (133-145) mmol/L Potassium 4.2 (3.3-5.1) mmol/L Chloride 99 (96-108) mmol/L Carbon Dioxide 25 (22-30) mmol/L BUN 16 (8-23) mg/dl Creatinine 4.9 H (0.7-1.2) mg/dl Glucose 55 L (70-105) mg/dL Calcium 8.3 L (8.6-10.4) mg/dl Total Bilirubin < 0.2 (0.0-1.0) mg/dL AST 8 (0-37) U/l ALT < 5 (0-40) U/l Alkaline Phosphatase 88 (39-117) U/L Total Protein 6.4 (5.9-8.4) gm/dL Albumin 2.3 L (3.2-5.2) gm/dL Medical - PN: A/P - Time Spent With Patient Total time spent is greater than 50% in coordination of care (as documented) at patient's floor/unit and/or counseling patient:
--- NOTE | 2016-06-26 20:41 | Procedure Note ---
Procedures - Central Line Placement Right Femoral Consent obtained: verbal consent (NO conset taken given emergent nature of the procedure. Estela Toscano informed of the need of procedure afterwards. ) Time out performed: Yes Patient placed on monitor/pulse ox: Yes MD prep: mask, sterile gown, sterile gloves, cap Central line prep: 2% Chlorhexidine scrub Local anesthesia used: lidocaine 1% Ultrasound used for placement: Yes Central line lumen inserted: quad, 20 cm Post procedure: sutured in place, good blood return, all ports aspirated, flushed, capped, sterile dressing applied Post procedure x-ray: no pneumothorax seen Patient tolerated procedure: well Complications: none
[2016-06-26] MEDS ORDERED: CHLORHEXIDINE GLUCONATE 1 ML ORAL.SOL SWABMOUTH SCH (21:00)
[2016-06-26] MEDS ORDERED: HEPARIN 5,000 UNIT/ML VIAL SQ SCH (21:00)
--- NOTE | 2016-06-26 21:11 | Transfer Summary ---
Transfer Discharge Sum: Prov Patient information: Note initiated : 06/26/16 at 9:01 pm Service Date, if different from initiated Date: [] Patient: Patrice Toscano 65 y/o M admitted on 06/24/16 for PNA,ESRD. Chief Complaint: [] Date of admission: 06/24/16 16:09 Discharge Date: 06/26/16 Primary care physician: [f_Reg Prim Care Provider] Admitting clinician: Nicki Slater Consults: 06/24/16 18:00 Consult to Physician [CONS] Routine Comment: ESRD, HD, Consulting Provider: Noa Crocker Reason For Exam: Physician to Consult 06/26/16 10:58 Consult to Physician [CONS] Routine Comment: xanthogranulomatous pyelonephritis. Consulting Provider: Umberto Mcknight Reason For Exam: Physician to Consult Discharging clinician: Nicki Slater Receiving physician/facility: Dr Minor, [facility] Transfer Discharge Sum: Diag - Discharge Diagnosis (1) Pleural effusion, left Status: Acute (2) Pleural effusion, right Status: Acute (3) Hospital-acquired pneumonia Status: Acute (4) Urinary tract infection Status: Acute (5) Sepsis Status: Acute (6) Chronic respiratory failure Status: Acute (7) ESRD (end stage renal disease) Status: Acute (8) Acute respiratory failure with hypoxia and hypercapnia Status: Acute Transfer Discharge Sum: Med - Medications Active and Home Medications: Home Medications Clopidogrel [Plavix] 300 mg DAILY 06/24/16 [History Confirmed 06/25/16] Sevelamer [Renvela] 4,000 mg PO TIDCC 06/24/16 [History Confirmed 06/25/16] hydrOXYzine [Atarax] 25 mg PO DAILYP PRN 06/24/16 [History Confirmed 06/25/16] Atenolol [Tenormin] 25 mg PO DAILY 06/25/16 [History Confirmed 06/25/16] Cinacalcet [Sensipar] 30 mg PO QAMCC 06/25/16 [History Confirmed 06/25/16] Naproxen 1 - 2 tablet PO Q8HP PRN 06/25/16 [History Confirmed 06/25/16] Pramipexole [Mirapex] 0.125 mg PO DAILY 06/25/16 [History Confirmed 06/25/16] amLODIPine [Norvasc] 5 mg PO DAILY 06/25/16 [History Confirmed 06/25/16] Active Medications Acetaminophen (Tylenol) 650 mg PO Q6HP PRN PRN Reason: PAIN/FEVER > 101 Albuterol/Ipratropium (Duoneb) 3 ml NEB Q6HRT [facility] Last Admin: 06/26/16 20:17 Dose: 3 ml Albuterol/Ipratropium (Duoneb) 3 ml NEB Q15M [facility] Stop: 06/26/16 18:16 Last Admin: 06/26/16 19:03 Dose: 3 ml Calcium Carbonate/Glycine (Tums) 500 mg CHEWED Q6HP [facility] Chlorhexidine Gluconate (Peridex) 15 ml SWABMOUTH BID [facility] Cinacalcet (Sensipar) 30 mg PO QAMCC [facility] Clopidogrel Bisulfate (Plavix) 75 mg PO DAILY [facility] Famotidine (Pepcid) 20 mg IV DAILY [facility] Heparin Sodium (Porcine) (Heparin) 5,000 unit SQ Q12 [facility] Piperacillin Sod/Tazobactam (Sod 2.25 gm/ Dextrose) 50 mls @ 100 mls/hr IV Q8H [facility] Sodium Chloride (Sodium Chloride 0.9%) 250 mls @ 0 mls/hr IV BOLUS ONE PRN Reason: Wide Open Stop: 06/26/16 18:10 Propofol (Diprivan) 100 mls @ IV .Q0M [facility]; 5 MCG/KG/MIN PRN Reason: Protocol Iron Carb/Multivit/Signal [employer]er/Folic Acid (Multivitamin W/Minerals) 1 tab PO DAILY [facility] Methylprednisolone Sodium Succinate (Solu-Medrol) 62.5 mg IV Q8 [facility] Last Admin: 06/26/16 14:55 Dose: 62.5 mg Naloxone HCl (Narcan) 0.1 mg IV Q2MIN PRN PRN Reason: Opiate Reversal Nicotine (Nicoderm) 21 mg TOPICAL DAILY@1000 [facility] Ondansetron HCl (Zofran) 4 mg IV Q6HP PRN PRN Reason: Nausea And Vomiting Oxycodone/Acetaminophen (Percocet 5-325 Mg) 1 tab PO Q4HP PRN PRN Reason: Pain Pantoprazole Sodium (Protonix) 40 mg IV QAMAC [facility] Promethazine HCl (Phenergan) 12.5 mg IV Q6HP PRN PRN Reason: Nausea And Vomiting Sevelamer Carbonate (Renvela) 4,000 mg PO TIDCC [facility] Last Admin: 06/26/16 15:54 Dose: Not Given Sodium Chloride (Saline Flush) 10 ml IV Q8 [facility] Vancomycin HCl (Vancomycin Per Pharmacy) 1 order IV UD [facility] Transfer Discharge Sum: Hosp Hospital course: Mr. Toscano is a 65 year old male with h/o CA bladder, s/p resection around 8-10 yrs ago, s/p urostomy, esrd on HD, HTN, asthma/ copd, was admitted to our hospital for management of pneumonia and altered mental status from [facility] in [place]. The patient workup revealed, that he has a chr pus drainage from the urostomy bag, 2 yrs? he had chr left effusion and a new right effusion, ? pneumomia. he was treated with IV vancomycin and IV zosyn for management of his infection. His condition improved on day 2, He underwent a CT chest which showed bilateral effusion, possible pna, no loculations. 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 The case was discussed with urology who advised IV antibiotics, and that patient will likely need source removal. Echo was done to evaluate cardiac s tatus, revealed lvef of 45%, moderate to severe ,. area of 0.7, aoritic area index of 0.35, severe mitral stenosis with valve of 0.9. Patient case was discussed with cardiolgist at [facility] who advised to treat the infection first as he is not a cadidate for any intervention while he is actively infected. Patient is in CHF with BNP > 70, 000.00. The patient condition on day 3 worsened, his mental status deteriorated, he was wheezing on exam. An ABG done which revealed Ph of 7.06/ PCO2 93, Patient was placed on bipap treatment he was terated with IV steroids adn duonebs, with no good response. His Blood pressure dropped, which did nto resond well to IV bolus, he was placed on levophed via a peripheral access while a central access was sought. while placing the cental access the patient suddenly desaturated while on bipap , emergent intubation was done, via glidascope, ET confirmed via end tidal Co2 adn asucultation, X ray showed ET tube in place 4 cms above the marilia. The patient also had lost his perhipheral access which resulted in loss of IV access, patient bp dropped to systolic of 65/30, patient Right dialysis cather was used to start IV levophed to continue levophed, while an emergent right femoral access was obtained. Right femoral in place with good flow in all ports. Dialysis access capped. The patient last HD was on Monday, no fluid was removed even though UF shows 1500, Given the significant decline in patients condition need for cardiolgoy ID< UROLGOY and Intensive care support needed .the patient was transferred to [facility] for further management. Dr Minor accepting physician. Patient last ABG showed Ph 7.21/co2 70 peak presure 27, plat 16, Patient vent setting are being titrated to improve ventilation. Patient has no trouble maintaing oxygen saturation of > 94% on 35% fio2 with peep of 6 - Time Spent with Patient Total time spent providing and/or coordinating transfer services: Greater than 30 minutes Transfer Discharge Sum: Exam - Constitutional Vitals: Vital Signs Temp Pulse Pulse Resp BP BP Pulse Ox 06/26/16 17:14 83 21 93 06/26/16 17:12 84 21 06/26/16 17:01 15 70/39 06/26/16 16:23 84 18 89 L 06/26/16 15:55 77 17 99/46 88 L 06/26/16 15:51 21 98/40 87 L 06/26/16 15:38 79 14 95/43 90 06/26/16 15:30 87/39 06/26/16 15:29 14 89/39 90 06/26/16 15:15 92/41 06/26/16 15:00 98/42 06/26/16 14:36 96.5 F L 87 28 H 111/56 4 L 06/26/16 14:30 28 H 139/68 06/26/16 11:28 99.3 F 24 100/66 94 06/26/16 07:09 77 30 H 06/26/16 07:05 97 06/26/16 06:34 98.8 F 75 20 99/61 97 06/26/16 05:25 118/51 06/26/16 03:30 98.2 F 78 20 84/50 98 06/25/16 23:35 98.2 F 86 20 123/68 92 02/04/17 22:55 70 23 Intake and Output 06/26/16 06/26/16 06/26/16 05:59 13:59 21:59 Intake Total 100 / 100 Output Total 125 / 125 Balance -25 / -25 Intake: IV 100 / 100 Dextrose 5% in Water 50 100 / 100 ml @ 100 mls/hr IV Q8H [facility] with Zosyn 2.25 gm Rx #:[id number] Oral 0 / 0 Output: Urine Catheter Amount 125 / 125 Additional comments: Constitutional; Afebrile, Eyes- No icterus, Pupils equal, reactive, No periorbital swelling Ears- Ext ear normal, hearing normal to conversation. Neck- Midline trachea, supple Respiratory system: Air Entry equal on both sides, No crackles or wheezing, no rhonchi. mechanically ventillated. decreased air entry at bases, left > right CVS- Rate rhythm regular, S1,S2 heard, no gallop, no rub. Abdomen- Soft nontender abdomen, no organomegaly, no tenderness, no guarding or rigidity, ureterostomy in place PLANE TENDER- AOOx0, sedated mechanically ventillated Transfer Discharge Sum: Data Procedures and tests throughout hospitalization: Pending Orders 06/24/16 01:30 Urine Culture Stat 06/24/16 17:37 Resuscitation Status Routine 06/24/16 18:00 Consult to Physician [CONS] Routine 06/24/16 18:11 Case Management Referral .Routine Admit as Inpatient Routine Bedrest .ROUTINE Condition Routine Fall Risk CONT IV Insertion/Management QSHIFT Intake and Output qshiftio Notify Provider .routine Vital Signs Q4 Weight Monitoring QHS RD to Adjust Diet/Supplements as Needed Routine Physical Therapy Eval & Tx DAILY Incentive Spirometry Assess/Tx Q2HWA Nebulizer management .Routine Oxygen Order .Routine Speech Therapy Eval & Treat .Routine 06/24/16 18:50 Blood Culture Stat 06/24/16 Breakfast Renal Diet 06/25/16 09:51 US echo doppler Urgent 06/25/16 11:03 DIALYSIS [Hemodialysis Treatment] .ROUTINE 06/25/16 15:00 US thoracentesis Urgent 06/25/16 18:42 Communication order ONCE 06/26/16 10:58 Consult to Physician [CONS] Routine 06/26/16 13:06 ABG (RT) NOW 06/26/16 14:00 methylPREDNISolone SOD SUCC [Solu-MEDROL] 62.5 mg IV Q8 06/26/16 14:14 Acetaminophen [Tylenol] 650 mg PO Q6HP PRN Calcium Carbonate [Tums] 500 mg CHEWED Q6HP Naloxone HCl [Narcan] 0.1 mg IV Q2MIN PRN Ondansetron [Zofran] 4 mg IV Q6HP PRN Promethazine [Phenergan] 12.5 mg IV Q6HP PRN Vancomycin Per Pharmacy 1 order IV UD oxyCODONE/APAP [PERCOCET 5-325 mg] 1 tab PO Q4HP PRN Nebulizer management .Routine 06/26/16 17:30 Sevelamer [Renvela] 4,000 mg PO TIDCC 06/26/16 17:45 Ipratropium/Albuterol [Duoneb] 3 ml NEB Q15M 06/26/16 18:09 0.9 % Sodium Chloride [Sodium Chloride 0.9%] 250 ml IV BOLUS 06/26/16 19:00 Ipratropium/Albuterol [Duoneb] 3 ml NEB Q6HRT 06/26/16 19:58 ABG (RT) NOW 06/26/16 20:04 Anti-Embolism Devices NOW Video Intern Referral CONT Elevate head of bed DAILY GI Tube Management .Routine Hand Hygiene DAILY Notify Provider PRN Oral hygiene BID Oral hygiene PRN Patient positioning .4 TIMES DAILY XR chest 1V portable Stat Sputum Culture and Gram Stain Routine ABG (RT) NOW ABG (RT) PRN Sputum Collection .ROUTINE Vent Weaning .ROUTINE Ventilator Management .ROUTINE 06/26/16 20:15 Propofol [Diprivan] 100 ml IV 5 mcg/kg/min 06/26/16 20:31 Communication order ONCE 06/26/16 20:32 Intubation .ROUTINE 06/26/16 21:00 Chlorhexidine Gluconate [Peridex] 15 ml SWABMOUTH BID Heparin 5,000 unit SQ Q12 06/26/16 22:00 0.9 % Sodium Chloride [Saline Flush] 10 ml IV Q8 Piperacillin Sodium/Tazobactam [Zosyn] 2.25 gm Dextrose 5% in Water 50 ml IV Q8H 06/27/16 04:00 Complete Blood Count DAILY Inpatient Panel DAILY 06/27/16 07:00 ABG (RT) BID 06/27/16 07:30 Pantoprazole [Protonix] 40 mg IV QAMAC 06/27/16 08:00 XR chest 1V portable DAILY Cinacalcet [Sensipar] 30 mg PO QAMCC 06/27/16 09:00 Clopidogrel [Plavix] 75 mg PO DAILY Famotidine/Pf [Pepcid] 20 mg IV DAILY Multivit,Ther Iron,Ca,FA & Min [Multivitamin W/Minerals] 1 tab PO DAILY 06/27/16 10:00 Nicotine [Nicoderm] 21 mg TOPICAL DAILY@1000 06/28/16 04:00 Complete Blood Count DAILY Inpatient Panel DAILY 06/28/16 08:00 XR chest 1V portable DAILY 06/29/16 04:00 Complete Blood Count DAILY Inpatient Panel DAILY 06/29/16 08:00 XR chest 1V portable DAILY 06/30/16 08:00 XR chest 1V portable DAILY 07/01/16 08:00 XR chest 1V portable DAILY Transfer Discharge Sum: A/P - Problem Maintenance (1) Pleural effusion, left Status: Acute (2) Pleural effusion, right Status: Acute (3) Hospital-acquired pneumonia Status: Acute (4) Urinary tract infection Status: Acute (5) Sepsis Status: Acute (6) Chronic respiratory failure Status: Acute (7) ESRD (end stage renal disease) Status: Acute (8) Acute respiratory failure with hypoxia and hypercapnia Status: Acute - Plan Overall status at transfer: patient is not back to baseline Disposition: [facility]
--- NOTE | 2016-06-26 21:28 | XRay Report ---
CLINICAL INFORMATION: Endotracheal tube placement TECHNIQUE: AP portable supine chest x-ray COMPARISON: 06/26/2016 FINDINGS: Endotracheal tube tip 5 cm above the marilia. No change in right central venous catheter. Bilateral pleural effusions. IMPRESSION: 1. Endotracheal tube within the trachea, tip is 5 cm above the marilia. 2. Bilateral pleural effusions. Interpreted and Authenticated by: Zach Wilson 06/26/16
[2016-06-26] MEDS ORDERED: PIPERACILLIN SODIUM/TAZOBACTAM 2.25 GM in DEXTROSE 5% IN WATER 50 ML IV SCH (22:00)
[2016-06-26] MEDS ORDERED: 0.9 % SODIUM CHLORIDE 10 ML SYRINGE IV SCH (22:00)
[2016-06-26] MEDS ORDERED: 0.9 % SODIUM CHLORIDE 250 ML IV SCH (23:30)
[2016-06-27] MEDS ORDERED: MIDAZOLAM 5 MG/5 ML VIAL IV ONE (00:16)
[2016-06-27] MEDS ORDERED: PANTOPRAZOLE 40 MG VIAL IV SCH (07:30)
[2016-06-27] MEDS ORDERED: CINACALCET 30 MG TABLET PO SCH (08:00)
--- NOTE | 2016-06-27 08:10 | Echocardiogram Report ---
2-D and M-Mode echocardiography with cardiac Doppler and color flow imaging were performed with a [employer] Aplio MX. Indication is pneumonia, end-stage renal disease, and bilateral pleural effusions. The study was technically suboptimal due to seated/upright positioning only and the patient agitation. A diagnostic M-Mode tracing of the LV could not be obtained. Overall size of the RA, RV, LV, and aortic root appeared normal. LV endocardium was difficult to visualize in some views, though wall thickness appears mildly increased. The septum and anterior wall appeared hypokinetic. The other LV segments appeared to contract normally, though not vigorously. Overall, LV systolic performance appeared mildly depressed. Estimated ejection fraction is 45 percent. There was no evidence for mural thrombus. The LA appeared mildly enlarged. The aortic valve appeared heavily calcified. Valve opening appears reduced. Maximal instantaneous aortic outflow systolic gradient as obtained from the apex and as calculated by the modified Bernoulli equation was 45 mmHg. Mean gradient was 35 mmHg. Valve area as calculated by the continuity equation was 0.7 cm2 and area index was 0.35 cm2 per meter square, severe aortic stenosis and possibly an overestimation of the severity. There was no evidence for aortic regurgitation. The mitral leaflets were obscured by very heavy calcification involving the annulus and aortic-mitral intervalvular fibrosis. Mean diastolic LV inflow gradient was 7 mmHg. Valve area as calculated by the continuity equation was 0.9 cm2, severe \\"mitral stenosis.\\" There was no evidence for mitral regurgitation. Pulmonary venous interrogation appeared to show normal \\"S\\" wave dominance. The pulmonic valve was not visualized. Pulmonary artery acceleration time appeared shortened. There was no evidence for pulmonic stenosis. No more than trivial pulmonic regurgitation was demonstrated. There was no evidence for tricuspid regurgitation. No intracardiac shunting was appreciated. There was no evidence for pericardial effusion. The IVC was of normal diameter and showed mild respiratory variation. Sinus rhythm, rate 70, was present. CONCLUSION: Technically suboptimal study due to a seated/upright positioning only and patient agitation. Aortic stenosis, probably moderate to severe. Mild concentric LVH with probable mild segmental systolic dysfunction (anteroseptal hypokinesis). Very heavy calcification, mitral annulus and aortic-mitral intervalvular fibrosis yielding moderate to severe \\"mitral stenosis\\"/mild LA enlargement.Possible raised CVP. (See accompanying M-Mode and operative reports for quantitation). ECHOCARDIOGRAPHY M-MODE CALCULATIONS: HT: 72 WT: 160 BSA: 1.94 m2 NORMALS AORTA: AORTIC ROOT 3.0 2.0-3.7 cm LEFT ATRIUM 3.3 1.9-4.0 cm MITRAL VALVE: EXCURSION 1.3 1.9-2.7 cm EPSS 1.3 <0.5 cm LT VENTRICLE: LVID (ED) -- 3.5-5.7 cm LVID (ES) -- SEPTAL THICKNESS -- 0.6-1.1 cm SEPTAL EXCURSION -- 0.3-0.8 cm LVPW THICKNESS -- 0.6-1.1 cm LVPW EXCURSION -- 0.9-1.4 cm MINOR AXIS FS -- 25%-40% RT VENTRICLE: RVID (ED) -- 0.9-2.6 cm(up to 3cm if LLD) QUALITATIVE DOPPLER FLOW STUDIES MITRAL VALVE MS probably moderate to severe AORTIC VALVE probably moderate to severe TRICUSPID VALVE -- PULMONIC VALVE OH, probably trivial QUANTITATIVE DOPPLER FLOW STUDIES SAMPLE SITES VELOCITIES PEAK PRESSURE VALVE AREA and/or VALVE WINDOW (PEAK,M/SEC) DROP (GRADIENT) PRESSURE HALF-TIME MV (Diastole) 2.0 1.0 -- MV (Systole) -- -- -- AO (Diastole) -- -- -- AO (Systole) 3.3 45 mmHg -- TV (Systole) -- -- -- PV (Systole) 0.8 -- -- PV (Diastole) 0.8 [email or web address] Job ID: [id number] Doc ID: [id number] Fabian Medrano MD
[2016-06-27] MEDS ORDERED: CLOPIDOGREL 75 MG TABLET PO SCH (09:00)
[2016-06-27] MEDS ORDERED: FAMOTIDINE/PF 20 MG/2 ML VIAL IV SCH (09:00)
[2016-06-27] MEDS ORDERED: MULTIVIT,THER IRON,CA,FA & MIN 1 TABLET PO SCH (09:00)
[2016-06-27] MEDS ORDERED: NICOTINE 21 MG PATCH TOPICAL SCH (10:00)
== END 2016-06-26 22:05 | disposition short-term general hospital (02) | DRG 871 ==
LOC: MEDSUR 16:09 → ICU 06-26 14:14
PROVIDERS: ADMIT Internal Medicine; ATTEND Internal Medicine